=== PATIENT | male | born 1930 | race Caucasian/White ===

== ENCOUNTER 2017-05-25 16:44 | Emergency (ER) | payer MEDICARE ==
[~2017-05-25] VITALS: Ht 170.2 cm; Wt 76.8 kg
[2017-05-25] MEDS ORDERED: SIMV40TA2 PO (17:11)
[2017-05-25] MEDS ORDERED: ECOT81TA5 PO (17:11)
[2017-05-25] MEDS ORDERED: MULT1CHW39 PO (17:11)
[2017-05-25] MEDS ORDERED: OMEP40CA2 PO (17:11)
[2017-05-25] MEDS ORDERED: LISI-542 PO (17:11)
[2017-05-25 18:13] LABS: BASO % 0.1 % (0.0-1.0); EOS # 0.1 K/mm3 (0.0-0.50); LARGE UNSTAINED CELL # 0.1 K/mm3 (0.0-0.4); LARGE UNSTAINED CELL % 0.8 % (0.0-4.0); LYMPH # 1.9 K/mm3 (1.5-4.5); MEAN CORPUSCULAR HEMOGLOBIN 33.3 pg (27.0-33.0); MEAN CORPUSCULAR HGB CONC 35.1 g/dl (32.0-36.5); MONO # 0.6 K/mm3 (0.0-0.8); MONO % 5.6 % (0.0-5.0); NEUTROPHILS # 8.2 K/mm3 (1.8-7.7); NEUTROPHILS % 75.5 % (36.0-66.0); PLATELET COUNT, AUTOMATED 207 k/mm3 (150-450); RED CELL DISTRIBUTION WIDTH 13.4 % (11.5-14.5); WHITE BLOOD COUNT 10.9 K/mm3 (4.0-10.0)
[2017-05-25] MEDS ORDERED: NS 500 ML IV ONE ×2 (18:15→20:15)
--- NOTE | 2017-05-25 18:38 | REP ---
Portable chest x-ray: Single view. History: Abdomen pain. Findings: Right hemidiaphragm is rather elevated. EKG monitoring electrodes overlie the chest. Lungs are otherwise well inflated and clear. Pleural angles are sharp. Cardiomediastinal silhouette is unremarkable. There are old healed fractures on the left. Pulmonary vasculature is not increased. Impression: Elevated right hemidiaphragm. Otherwise no acute disease. Signed by Michael Banks MD 05/25/2017 06:43 P
[2017-05-25 18:41] LABS: ALBUMIN 3.8 GM/DL (3.2-5.2); ALBUMIN/GLOBULIN RATIO 0.97 (1.00-1.93); ALKALINE PHOSPHATASE 113 U/L (45-117); ALT/SGPT 25 U/L (12-78); AMYLASE 52 U/L (25-115); ANION GAP 11 MEQ/L (8-16); AST/SGOT 20 U/L (15-37); BILIRUBIN,DIRECT 0.2 MG/DL (0.0-0.2); BILIRUBIN,TOTAL 0.7 MG/DL (0.2-1.0); BLOOD UREA NITROGEN 22 MG/DL (7-18); CALCIUM LEVEL 9.5 MG/DL (8.8-10.2); CARBON DIOXIDE LEVEL 28 MEQ/L (21-32); CHLORIDE LEVEL 102 MEQ/L (98-107); CREATININE FOR GFR 1.27 MG/DL (0.70-1.30); GLOMERULAR FILTRATION RATE 57.4 (>35); GLUCOSE, FASTING 141 MG/DL (83-110); POTASSIUM SERUM 4.4 MEQ/L (3.5-5.1); SODIUM LEVEL 141 MEQ/L (136-145); TOTAL PROTEIN 7.7 GM/DL (6.4-8.2)
[2017-05-25] MEDS ORDERED: ISOVUE-370 76% 100ML VIAL (Q9967) As Ordered ONE (19:29)
--- NOTE | 2017-05-25 20:00 | REPUSA ---
CT of the abdomen and pelvis with contrast Clinical statement: Pain. Technique: Multiple axial CT images were obtained from the base of the lungs through the floor of the pelvis utilizing 5 mm axial slices after administration of nonionic intravenous contrast. Coronal an d sagittal reconstructions were also obtained. No comparison is available. Findings: Chest: The visualized lung bases are unremarkable, other than minimal linear atelectasis in the right lower lung. Abdomen: The liver, spleen, pancreas, kidneys, gallbladder, and adrenal glands are grossly unremarkab le. The left kidney is slightly atrophic. The aortoiliac stent graft is grossly patent. There is no e vidence of dissection. There is no evidence of abdominal lymphadenopathy or ascites. Pelvis: The bowel is unremarkable, with no obstructive or inflammatory changes. A left inguinal herni a is noted, containing only omental fat. The urinary bladder is within normal limits. The other pelvi c structures appear grossly intact. There is no evidence of pelvic lymphadenopathy or ascites. Bones: There are no suspicious osseous abnormalities seen. Impression: 1. No obstructive or inflammatory bowel changes. 2. Large left inguinal hernia containing only omental fat. 3. Linear atelectasis in the right lower lung. 4. 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 5. Aortoiliac graft grossly intact and patent.
[2017-05-25 20:50] VITALS: BP 160/94
--- NOTE | 2017-05-26 09:42 | ECGEPIP ---
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
--- NOTE | 2017-05-29 09:24 | ED PDOC ---
Post-Departure Follow-Up radiology report faxed to Nicol Jacobson MD May 29, 2017 09:24
== END 2017-05-25 21:18 | disposition home or self-care (01) ==
LOC: M ED 16:44
DX: R10.9 Unspecified abdominal pain (principal); K42.9 Umbilical hernia without obstruction or gangrene; I10 Essential (primary) hypertension; R93.1 Abnormal findings on diagnostic imaging of heart and coronary circulation; Z79.82 Long term (current) use of aspirin; Z79.899 Other long term (current) drug therapy
CPT/HCPCS: 71010; 74177; 80048; 80076; 82150; 82550; 82553; 83605; 83690; 84484; 85025; 87040; 87088; 87186; 93005; 93041; 96360; 96361; 99284; Q9967

== ENCOUNTER → 2017-06-11 | Outpatient (REF) | payer MEDICARE ==
[~2017-06-11] MED LIST: ECOT81TA5 PO; LISI-542 PO; MULT1CHW39 PO; OMEP40CA2 PO; SIMV40TA2 PO
== END ==
LOC: M SFHCADAM 08:57
PROVIDERS: ATTEND Family Medicine
DX: Z79.899 Other long term (current) drug therapy (principal); B96.20 Unspecified Escherichia coli [E. coli] as the cause of diseases classified elsewhere
CPT/HCPCS: 81001; 87086; G0463

== ENCOUNTER → 2018-08-03 | Outpatient (REF) | payer MEDICARE ==
[2018-08-03 10:44] LABS: HEMATOCRIT 43.7 % (42.0-52.0); HEMOGLOBIN 14.8 g/dl (13.5-17.5); MEAN CORPUSCULAR HEMOGLOBIN 31.9 pg (27.0-33.0); MEAN CORPUSCULAR HGB CONC 33.9 g/dl (32.0-36.5); MEAN CORPUSCULAR VOLUME 94.2 fl (80.0-96.0); PLATELET COUNT, AUTOMATED 208 10^3/uL (150-450); RED BLOOD COUNT 4.64 10^6/uL (4.30-6.10); RED CELL DISTRIBUTION WIDTH 13.7 % (11.5-14.5); WHITE BLOOD COUNT 7.4 10^3/uL (4.0-10.0)
[2018-08-03 11:24] LABS: ALBUMIN 3.7 GM/DL (3.2-5.2); ALBUMIN/GLOBULIN RATIO 1.09 (1.00-1.93); ALKALINE PHOSPHATASE 113 U/L (45-117); ALT/SGPT 26 U/L (12-78); ANION GAP 11 MEQ/L (8-16); AST/SGOT 21 U/L (7-37); BILIRUBIN,TOTAL 0.7 MG/DL (0.2-1.0); BLOOD UREA NITROGEN 21 MG/DL (7-18); CARBON DIOXIDE LEVEL 25 MEQ/L (21-32); CHLORIDE LEVEL 103 MEQ/L (98-107); CHOLESTEROL LEVEL 166 MG/DL (<200); CHOLESTEROL RISK RATIO 4.048 (<5); CREATININE FOR GFR 1.51 MG/DL (0.70-1.30); GLOMERULAR FILTRATION RATE 46.9 (>35); GLUCOSE, FASTING 108 MG/DL (70-100); HDL CHOLESTEROL 41 MG/DL (>40); LDL CHOLESTEROL 96 MG/DL (<100); NON-HDL-C 125 MG/DL; POTASSIUM SERUM 4.5 MEQ/L (3.5-5.1); SODIUM LEVEL 139 MEQ/L (136-145); TOTAL 25(OH) VITAMIN D 32.1 NG/ML (30.0-100.0); TOTAL PROTEIN 7.1 GM/DL (6.4-8.2); TRIGLYCERIDES LEVEL 145 MG/DL (<150)
== END ==
LOC: M SFHCPLAZ 07:52
DX: N18.2 Chronic kidney disease, stage 2 (mild) (principal); E78.2 Mixed hyperlipidemia
CPT/HCPCS: 80053

== ENCOUNTER → 2019-07-29 | Outpatient (REF) | payer MEDICARE ==
[~2019-07-29] MED LIST changes: -MULT1CHW39 PO; +MULT200T7 PO; -OMEP40CA2 PO; +OMEP40CA97 PO
[2019-07-29 12:06] LABS: HEMATOCRIT 44.5 % (42.0-52.0); HEMOGLOBIN 14.4 g/dl (13.5-17.5); MEAN CORPUSCULAR HEMOGLOBIN 31.8 pg (27.0-33.0); MEAN CORPUSCULAR HGB CONC 32.4 g/dl (32.0-36.5); MEAN CORPUSCULAR VOLUME 98.2 fl (80.0-96.0); PLATELET COUNT, AUTOMATED 204 10^3/uL (150-450); RED BLOOD COUNT 4.53 10^6/uL (4.30-6.10); WHITE BLOOD COUNT 7.2 10^3/uL (4.0-10.0)
[2019-07-29 12:51] LABS: ALBUMIN 3.6 GM/DL (3.2-5.2); BILIRUBIN,TOTAL 0.6 MG/DL (0.2-1.0); CALCIUM LEVEL 9.2 MG/DL (8.8-10.2); CHOLESTEROL RISK RATIO 3.137 (<5); CREATININE FOR GFR 1.36 MG/DL (0.70-1.30); FREE T4 0.95 NG/DL (0.76-1.46); GLOMERULAR FILTRATION RATE 52.8 (>35); THYROID STIMULATING HORMONE 2.93 uIU/ML (0.358-3.740)
== END ==
LOC: M LABDRAW1 08:50
PROVIDERS: ATTEND Physician Assistant
DX: I11.9 Hypertensive heart disease without heart failure (principal); N18.1 Chronic kidney disease, stage 1; E78.2 Mixed hyperlipidemia

== ENCOUNTER → 2020-08-02 | Outpatient (REF) | payer MEDICARE ==
[~2020-08-02] MED LIST changes: -SIMV40TA2 PO; +SIMV40TA20 PO
[2020-08-02 10:25] LABS: HEMATOCRIT 42.8 % (42.0-52.0); HEMOGLOBIN 14.4 g/dl (13.5-17.5); MEAN CORPUSCULAR HEMOGLOBIN 32.4 pg (27.0-33.0); MEAN CORPUSCULAR HGB CONC 33.6 g/dl (32.0-36.5); MEAN CORPUSCULAR VOLUME 96.2 fl (80.0-96.0); PLATELET COUNT, AUTOMATED 219 10^3/uL (150-450); RED BLOOD COUNT 4.45 10^6/uL (4.30-6.10); WHITE BLOOD COUNT 7.9 10^3/uL (4.0-10.0)
[2020-08-02 10:56] LABS: ALBUMIN 3.6 GM/DL (3.2-5.2); BILIRUBIN,TOTAL 0.7 MG/DL (0.2-1.0); CALCIUM LEVEL 9.3 MG/DL (8.8-10.2); CHOLESTEROL RISK RATIO 3.224 (<5); CREATININE FOR GFR 1.42 MG/DL (0.70-1.30); FREE T4 1.05 NG/DL (0.76-1.46); GLOMERULAR FILTRATION RATE 50.1 (>35); POTASSIUM SERUM 5.2 MEQ/L (3.5-5.1); THYROID STIMULATING HORMONE 2.44 uIU/ML (0.358-3.740)
== END ==
LOC: M PLALAB 08:15
PROVIDERS: ATTEND Family Medicine
DX: R55 Syncope and collapse (principal); N18.1 Chronic kidney disease, stage 1; E78.2 Mixed hyperlipidemia

== ENCOUNTER → 2021-05-15 | Outpatient (CLI) | payer MEDICARE ==
[~2021-05-15] MED LIST changes: -LISI-542 PO; +LISI-898 PO; +OMEP40CA4 PO; -OMEP40CA97 PO
== END ==
LOC: M LABSMTC 11:19
PROVIDERS: ATTEND Anesthesiology
DX: Z01.812 Encounter for preprocedural laboratory examination (principal); Z20.822 Contact with and (suspected) exposure to COVID-19
CPT/HCPCS: 93005; G0463; U0003

== ENCOUNTER 2021-05-20 07:51 | Day surgery (SDC) | payer MEDICARE ==
[~2021-05-20] VITALS: Ht 165.1 cm; Wt 73.9 kg
[~2021-05-20 07:51] MED LIST changes: +LIDOCAINE 1% SDV 5ML VIAL As Ordered ONE; +LR 1,000 ML IV SCH
[2021-05-20] MEDS ORDERED: MIDAZOLAM INJ 2MG/2ML VIAL (J2250 PER 1MG) As Ordered ONE (10:32)
[2021-05-20] MEDS ORDERED: fentaNYL 100 MCG/2 ML INJECTION (J3010) As Ordered ONE (10:33)
[2021-05-20] MEDS: TETRACAINE 0.5% OPHTH SOLN 4ML OD SCH ×2 (10:58→11:05)
[2021-05-20] MEDS: PHENYLEPHRINE 2.5% OPHTH SOL 2ML OD SCH ×3 (11:06→11:32)
[2021-05-20] MEDS: CYCLOPENTOLATE 1% OPHTH SOLN 2 ML BTL OD SCH ×3 (11:06→11:33)
[2021-05-20] MEDS: FLURBIPROFEN 0.03% OPHTH SOLN 2.5 ML OD SCH ×3 (11:07→11:33)
[2021-05-20] MEDS ORDERED: DUOVISC (0.50ML VISCOAT/0.85ML PROVISC) OPHTH KIT As Ordered ONE (11:59)
[2021-05-20 13:07] VITALS: BP 184/83
== END 2021-05-20 13:10 | disposition home or self-care (01) ==
LOC: M SDC 07:51 → M OPP 07:51
PROVIDERS: ATTEND Ophthalmology
DX: H25.11 Age-related nuclear cataract, right eye (principal); I10 Essential (primary) hypertension; E78.49 Other hyperlipidemia; Z79.82 Long term (current) use of aspirin; Z79.899 Other long term (current) drug therapy
CPT/HCPCS: 66984; J2250; J3010; V2632

== ENCOUNTER → 2021-06-19 | Outpatient (CLI) | payer MEDICARE ==
[~2021-06-19] MED LIST changes: -LIDOCAINE 1% SDV 5ML VIAL As Ordered ONE; -LR 1,000 ML IV SCH; +TIMO0.5S29
== END ==
LOC: M LABSMTC 09:36
PROVIDERS: ATTEND Anesthesiology
DX: Z01.812 Encounter for preprocedural laboratory examination (principal); Z20.822 Contact with and (suspected) exposure to COVID-19

== ENCOUNTER 2021-06-24 09:26 | Day surgery (SDC) | payer MEDICARE ==
[~2021-06-24] VITALS: Ht 170.2 cm; Wt 73.4 kg
[~2021-06-24 09:26] MED LIST changes: +CYCLOPENTOLATE 1% OPHTH SOLN 2 ML BTL OS SCH; +DUOVISC (0.50ML VISCOAT/0.85ML PROVISC) OPHTH KIT As Ordered ONE; +FLURBIPROFEN 0.03% OPHTH SOLN 2.5 ML OS SCH; +LIDOCAINE 1% MDV 20ML VIAL SQ PRN; +LIDOCAINE 1% SDV 5ML VIAL As Ordered ONE; +LR 1,000 ML IV SCH; +PHENYLEPHRINE 2.5% OPHTH SOL 2ML OS SCH; +TETRACAINE 0.5% OPHTH SOLN 4ML OS SCH
[2021-06-24] MEDS ORDERED: MIDAZOLAM INJ 2MG/2ML VIAL (J2250 PER 1MG) As Ordered ONE (10:26)
[2021-06-24] MEDS ORDERED: fentaNYL 100 MCG/2 ML INJECTION (J3010) As Ordered ONE (10:27)
[2021-06-24 14:15] VITALS: BP 192/91
== END 2021-06-24 14:20 | disposition home or self-care (01) ==
LOC: M SDC 09:26
PROVIDERS: ATTEND Ophthalmology
DX: H25.12 Age-related nuclear cataract, left eye (principal); I10 Essential (primary) hypertension; E78.5 Hyperlipidemia, unspecified; Z79.899 Other long term (current) drug therapy
CPT/HCPCS: 66984; J2250; J3010; V2632